=== PATIENT | female | born 1955 | race Caucasian/White ===

== ENCOUNTER 2020-03-28 15:11 | Emergency (ER) | payer BC, OTHER ==
--- OUTSIDE RECORDS SUMMARY | 2020-03-28 15:13 | XMS REPORT | Continuity of Care Document ---
:1955 Author Organization [facility] t Address [address] [place] [address] Care Team Providers Name Role Phone Unavailable Unavailable Unavailable Problems Condition Condition Condition Status Onset Resolution Last Treating Co mments Source Name Details Category Date Date Treatment Clinician Date Thyroid Thyroid Problem Active [facility] Adult Adult Diagnosis Active [facility] general general [facility] exam exam l [facility] Pain of Pain of Problem Active [facility] left calf left calf [facility] Screening Screening Problem Active [facility] for for [facility] - thyroid thyroid [facility] disorder disorder l [facility] Gynecologi Gynecologi Problem Active [facility] exam c exam [facility] normal normal [facility] Obesity Obesity Problem Active [facility] Vitamin D Vitamin D Problem Active [facility] deficiency deficiency Miriam kes - [facility] Hyperlipid Hyperlipid Problem Active [facility] emia emia [facility] Hearing Hearing Problem Active [facility] loss loss [facility] Lower Lower Problem Active [facility] extremity extremity Luke [facility] - pain, left pain, left Me moria l [facility] Osteopenia Osteopenia Problem Active [facility] Murmur Murmur Problem Active [facility] Chronic Chronic Problem Active [facility] fatigue fatigue [facility] Gastroesop Gastroesop Problem Active [facility] hageal hageal [facility] - reflux reflux Memoria disease disease l with with [facility]ics Grieving Grieving Problem [facility] Pharyngiti Pharyngiti Problem Active [facility] s, s, [facility] - unspecifie unspecifie Me moria d etiology d etiology l [facility] 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 Memoria disease, disease, l unspecifie unspecifie Ou tpati d whether d whether ent persistent persistent Cl inics Cough Cough Problem Active [facility] Abnormal Abnormal Problem Active [facility] mammogram mammogram [facility] Insulin Insulin Problem Active [facility] resistance resistance Miriam kes - [facility] PCOS PCOS Problem Active [facility] (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) l [facility] Pre-op Pre-op Problem Active [facility] exam exam [facility] Weight Weight Problem Active [facility] loss loss [facility] - counseling counseling Me moria , , l encounter encounter Outp ati for for ent Clinics Somnolence Somnolence Problem Active [facility] , daytime , daytime [facility] Elevated Elevated Problem Active [facility] blood blood [facility] - pressure pressure Memori a reading reading l with with Outpati diagnosis diagnosis ent of of Clinics hypertensi hypertensi on on Adverse Adverse Problem Active [facility] effect of effect of Luke s - angiotensi angiotensi Me moria n-converti n-converti l ng-enzyme ng-enzyme Outp ati inhibitors inhibitors en t , initial , initial Clin ics encounter encounter Prediabete Prediabete Diagnosis Active [facility] s s [facility] Duodenitis Duodenitis Diagnosis Active [facility] without without [facility] - bleeding bleeding Memori a l [facility] Helicobact Helicobact Diagnosis Active [facility] er pylori er pylori Luke s - [H. [H. Memoria pylori] as pylori] as l the cause the cause Outp ati of of ent diseases diseases Clinic s classified classified elsewhere elsewhere Allergies, Adverse Reactions, Alerts This patient has no known allergies or adverse reactions. Medications Ordered Filled Start Stop Current Ordering Indication Dosage Frequency Signature Comments Components Source Medication Medication Date Date Medication? Clinician (SIG) Name Name Ergocalcife Ergocalcife 2019-0 2020- No Na Weeks [address] [facility] rol rol 11-26 [facility] - 00:00: 00:00 Memoria 00 :00 Outpati ent Clinics Lisinopril Lisinopril 2018-05 Yes Na Weeks [address] [facility] 06-21 [facility] - 00:[facility]: [facility] 00 [facility] Ergocalcife Ergocalcife Yes Na Weeks [address] [facility] rol rol [facility] Metformin Metformin Yes Na Weeks [address] [facility] HCl HCl with a [facility] - meal [facility] Losartan Losartan Yes Na Weeks [address] [facility] Potassium Potassium [facility] Procedures This patient has no known procedures. Encounters Start End Encounter Admission Attending Care Care Encounter Source Date/Time Date/Time Type Type Clinicians Facility Department ID 2019-11-27 2019-11-27 [facility] [id number] [facility] [address] 08[facility]00[facility]00 08:00:[address] [facility] Medicine Outpati ent Clinics 2019-11-21 2019-11-21 [facility] [id number] [facility] [address] 09:20:00 09:20:[address] [facility] Medicine Outpati ent Clinics 2019-11-20 2019-11-20 [facility] [id number] [address] 16:04:00 16:04:[address] [facility] Medicine Outpati ent Clinics 2019-10-27 2019-10-27 [facility] [id number] [address] 13:33:00 13:33:[address] [facility] Medicine Outpati ent Clinics 2019-10-16 2019-10-16 [facility] [id number] [address] 09:27:00 09:27:[address] [facility] Medicine Outpati ent Clinics 2019-09-10 2019-09-10 [facility] [id number] [address] 08:40:00 08:40:[address] [facility] Medicine Outpati ent Clinics 2019-09-08 2019-09-08 [facility] [id number] [address] 16:32:00 16:32:00 t Dale Dale [employer] s - [facility] l Medicine Outpati ent Clinics 2019-05-29 2019-05-29 [facility] [id number] 09:00:00 09:00:00 t Dale [employer] s - [facility] Medicine l Medicine Outpati ent Clinics 2019-05-14 2019-05-14 [facility] [id number] [facility] 16:49:00 16:49:00 t Dale Dale [employer] s - [facility] Medicine l Medicine Outpati ent Clinics 2019-04-21 2019-04-21 [facility] [id number] [facility] 15:00:00 15:00:00 t Dale Dale [employer] s - [address] [facility] Medicine l Medicine Outpati ent Clinics 2019-03-11 2019-03-11 [facility] [id number] [address] 08:20:00 08:20:00 t Dale [employer] s - [address] [facility] Medicine l Medicine Outpati ent Clinics 2018-12-11 2018-12-11 [facility] [id number] 11:05:00 11:05:00 t Dale Dale [employer] [facility] - [address] [facility] Medicine l Medicine Outpati ent Clinics 2018-12-04 2018-12-04 [facility] [id number] 09:20:00 09:20:00 t Dale [employer] s - Drive [facility] Medicine l Medicine Outpati ent Clinics 2018-10-31 2018-10-31 [facility] [id number] 19:57:00 19:57:00 t Dale Dale [employer] s - [facility] Medicine l Medicine Outpati ent Clinics 2018-07-31 2018-07-31 [facility] [id number] [facility] 17:15:00 17:15:00 t [facility] Clinic l Outpati ent Clinics 2018-05-23 2018-05-23 [facility] [id number] 09:15:00 09:15:00 t Dale Dale [employer] s - [address] [facility] Medicine l Medicine Outpati ent Clinics 2017-09-27 2017-09-27 [facility] [id number] [facility] [address] 15:45:00 15:45:00 [employer] [facility] 2017-09-25 2017-09-25 Outpatient Timi Ritter [id number] [facility] [address] 11:30:00 11:30:00 [employer] [facility] Clinics Results This patient has no known results.
[2020-03-28] MEDS ORDERED: FENTANYL CITR 100 MCG/2 ML ONE ×2 (15:39→16:45)
[2020-03-28] MEDS ORDERED: propofoL 200 MG/20 ML VIAL IV ONE (16:55)
[2020-03-28] MEDS ORDERED: NA CHLORIDE 0.9% 1,000 ML ONE (17:00)
--- NOTE | 2020-03-28 17:07 | RAD REPORT ---
EXAM DESCRIPTION: RAD - Wrist Right 3 View - 03/28/2020 3:52 pm CLINICAL HISTORY: fall;Pain COMPARISON: No comparisons FINDINGS: Transverse fracture is present through the distal right radial metaphysis. Fracture is com minuted with an additional fracture fragment along the ulna margin. Approximately 40 degree dorsal an gulation deformity is present with impaction along the dorsal margin. No distal ulna fracture seen. Styloid appears intact. No carpal bone acute finding. Carpal bones main tain normal positioning to the angulated distal fracture fragment. There is no dislocation or periost eal reaction noted. Epiphyses and growth plates are normal in appearance. No foreign body or other so ft tissue abnormality. IMPRESSION: Comminuted distal right radius fracture with impaction and dorsal angulation.
--- NOTE | 2020-03-28 17:08 | RAD REPORT ---
EXAM DESCRIPTION: RAD - Wrist Left 3 View - 03/28/2020 3:53 pm CLINICAL HISTORY: PAIN COMPARISON: No comparisons FINDINGS: No fracture is identified. There is no dislocation or periosteal reaction noted. No foreig n body or other soft tissue abnormality. IMPRESSION: Negative left wrist examination.
--- NOTE | 2020-03-28 17:09 | RAD REPORT ---
EXAM DESCRIPTION: RAD - Sacrum And Coccyx - 03/28/2020 4:24 pm CLINICAL HISTORY: fall;Pain COMPARISON: No comparisons FINDINGS: No SI joint or sacral ala abnormality identifiable. No sacral or coccyx fracture confirmed there is no abnormal displacement or angulation of the segments. No prevertebral soft tissue thicken ing. No suspicious soft tissue process. IMPRESSION: No fracture of the sacrum or coccyx identifiable.
--- NOTE | 2020-03-28 18:01 | EDPHYS ---
Physician Documentation [facility] Name: Celsa Galvan Age: 64 yrs Sex: Female : 1955 Arrival Date: 03/28/2020 Time: 15:13 Bed 4 Private MD: ED Physician Otis Ballard HPI: 03/28 15:20 This 64 yrs old Female presents to ER via EMS with complaints of Fall. cp 15:20 Details of fall: The patient fell from an upright position, while walking. Onset: The cp symptoms/episode began/occurred just prior to arrival. Associated injuries: The patient sustained right wrist, decreased range of motion, deformity, painful injury, buttocks, painful injury, left wrist, painful injury. 15:20 Patient denies striking head, denies LOC. cp Historical: - Allergies: 15:20 Cipro PO; jd3 15:20 "some sort of blood pressure medication"; jd3 - Home Meds: 15:20 GERD med [Active]; blood pressure med [Active]; jd3 - PMHx: 15:20 Hypertension; GERD; jd3 - Immunization history:: Adult Immunizations up to date. - Social history:: Smoking status: Patient denies any tobacco usage or history of. ROS: 15:30 Constitutional: Negative for body aches, chills, fever. cp 15:30 Eyes: Negative for injury, pain, redness, and discharge. cp 15:30 Neck: Negative for pain with movement, pain at rest, stiffness. 15:30 Cardiovascular: Negative for chest pain, palpitations. 15:30 Respiratory: Negative for cough, shortness of breath, wheezing. 15:30 Abdomen/GI: Negative for abdominal pain, nausea, vomiting, and diarrhea. 15:30 Back: Positive for pain at rest, of the sacrum. 15:30 MS/extremity: Positive for injury or acute deformity, decreased range of motion, pain, of the right wrist, Negative for paresthesias. 15:30 Neuro: Negative for altered mental status, headache, loss of consciousness, syncope, weakness. 15:30 All other systems are negative. Exam: 15:35 Constitutional: The patient appears in no acute distress, alert, awake, cp non-diaphoretic, non-toxic, well developed, well nourished, uncomfortable. 15:35 Head/Face: Normocephalic, atraumatic. cp 15:35 Eyes: Periorbital structures: appear normal, Pupils: equal, round, and reactive to light and accomodation, Extraocular movements: intact throughout, Conjunctiva: normal, no exudate, no injection, Sclera: no appreciated abnormality, Lids and lashes: appear normal, bilaterally. 15:35 ENT: External ear(s): are unremarkable, Nose: is normal, Mouth: is normal, Posterior pharynx: Airway: no evidence of obstruction, patent. 15:35 Neck: C-spine: vertebral tenderness, is not appreciated, crepitus, is not appreciated, ROM/movement: pain, is not appreciated, limited range of motion, is not appreciated. 15:35 Chest/axilla: Inspection: normal, Palpation: is normal, no crepitus, no tenderness. 15:35 Cardiovascular: Rate: normal, Rhythm: regular, Pulses: Pulses are 2+ in right radial artery and left radial artery. Edema: is not appreciated, JVD: is not appreciated. 15:35 Respiratory: the patient does not display signs of respiratory distress, Respirations: normal, no use of accessory muscles, no retractions, labored breathing, is not present, Breath sounds: are clear throughout, no decreased breath sounds, no stridor, no wheezing. 15:35 Abdomen/GI: Inspection: abdomen appears normal, Palpation: abdomen is soft and non-tender, in all quadrants. 15:35 Back: pain, that is mild, of the sacrum. 15:35 Musculoskeletal/extremity: Extremities: grossly normal except: noted in the right wrist: decreased ROM, deformity, pain, tenderness, ROM: limited passive range of motion, in the right wrist, the right wrist Severe pain noted. 15:35 Skin: intact with no open wounds. 15:35 Neuro: Orientation: to person, place \\T\\ time. Mentation: is normal, Motor: moves all fours, strength is normal, Sensation: no obvious gross deficits. Vital Signs: 15:18 BP 119 / 56; Pulse 85; Resp 17 S; Temp 97.3(TE); Pulse Ox 99% on R/A; Weight 95.25 kg jd3 (R); Height 5 ft. 7 in. (170.18 cm) (R); Pain 10/10; 16:22 BP 119 / 61; Pulse 70; Resp 18; Temp 97.6(TE); Pulse Ox 99% on R/A; mh5 17:25 BP 134 / 81; Pulse 74; Resp 16 S; Pulse Ox 100% on R/A; jd3 18:29 BP 133 / 67; Pulse 84; Resp 17 S; Pulse Ox 100% on R/A; jd3 15:18 Body Mass Index 32.89 (95.25 kg, 170.18 cm) jd3 Procedures: 17:49 Reduction: of the right wrist, using traction, manipulation, Immobilized with Orthoglass sugar tong type splint. Patient tolerated well. Post reduction film - reveals improved alignment. Moderate sedation: Pre-procedure assessment: Airway assessment: able to hyperextend neck, able to maintain airway, can open mouth without difficulty, Monitoring during procedure: environmental monitoring specialist, continuous pulse oximetry, nurse at bedside at all times, Medications employed: 100 mg Propofol, Post-procedure assessment: the patient is moderately sedated, Respiratory status: even and unlabored. MDM: 15:15 Patient medically screened. cp 16:00 Differential diagnosis: closed head injury, fracture, laceration, multiple trauma. cp 18:00 Data reviewed: vital signs, nurses notes, radiologic studies, plain films, I have cp discussed the patient's presentation/case with the attending Emergency Department Physician; and as a result, I will discharge patient. 18:00 Test interpretation: by ED physician or midlevel provider: xrays of right wrist show cp Colles fracture. Counseling: I had a detailed discussion with the patient and/or guardian regarding: the historical points, exam findings, and any diagnostic results supporting the discharge/admit diagnosis, lab results. Response to treatment: the patient's symptoms have markedly improved after treatment, and as a result, I will discharge patient. ED course: VSS. Pain markedly improved. Reduction of right wrist shows improved alignment. Will discharge to home for continued monitoring. 03/28 15:15 Order name: XRAY Sacrum And Coccyx 03/28 15:15 Order name: XRAY Wrist RIGHT 3 view cp 03/28 15:15 Order name: XRAY Wrist LEFT 3 view cp 03/28 17:09 Order name: XRAY Wrist RIGHT 2 view cp 03/28 15:15 Order name: IV; Complete Time: 15:30 cp 03/28 16:35 Order name: Splint - Sugar Tong - Forearm; Complete Time: 16:52 cp 03/28 17:14 Order name: Sling; Complete Time: 17:14 5 Administered Medications: 15:30 Drug: fentaNYL (PF) 25 mcg Route: IVP; Site: left antecubital; jd3 16:30 Follow up: Response: No adverse reaction; RASS: Alert and Calm (0) jd3 16:34 Drug: fentaNYL (PF) 25 mcg Route: IVP; Site: left antecubital; jd3 17:00 Follow up: Response: No adverse reaction; RASS: Alert and Calm (0) jd3 17:00 Drug: NS 0.9% 1000 ml Route: IV; Rate: 1 bolus; Site: left antecubital; jd3 18:00 Follow up: Response: No adverse reaction; IV Status: Completed infusion; IV Intake: jd3 1000ml 17:22 Drug: Propofol 100 mg Route: IVP; Site: left antecubital; jd3 18:00 Follow up: Response: No adverse reaction jd3 Disposition: 03/29 06:40 Co-signature as Attending Physician, Otis Ballard MD I agree with the assessment and kdr plan of care. Disposition: 03/28/20 18:01 Discharged to Home. Impression: Colles' fracture of right radius, Pain in left wrist, Fall on same level from slipping, tripping and stumbling. - Condition is Stable. - Discharge Instructions: Colles Fracture. - Prescriptions for Tylenol- Codeine #3 300-30 mg Oral Tablet - take 2 tablet by ORAL route every 6 hours As needed; 30 tablet. - Medication Reconciliation Form, Thank You Letter, Antibiotic Education, Prescription Opioid Use form. - Follow up: Faisal Velez MD; When: 2 - 3 days; Reason: right distal radius fracture. - Problem is new. - Symptoms have improved. Signatures: Dispatcher [employer] EDMS Otis Ballard MD MD [facility] Lonnie Richards PA PA cp Martinez, Maria [facility] Charles Weber RN RN jd3 Corrections: (The following items were deleted from the chart) 03/28 18:31 18:01 03/28/2020 18:01 Discharged to Home. Impression: Colles' fracture of right jd3 radius; Pain in left wrist; Fall on same level from slipping, tripping and stumbling. Condition is Stable. Forms are Medication Reconciliation Form, Thank You Letter, Antibiotic Education, Prescription Opioid Use. Follow up: Faisal Velez; When: 2 - 3 days; Reason: right distal radius fracture. Problem is new. Symptoms have improved. cp
--- NOTE | 2020-03-28 18:01 | ER ---
Nurse's Notes [facility] Name: Celsa Galvan Age: 64 yrs Sex: Female : 1955 Arrival Date: 03/28/2020 Time: 15:13 Bed 4 Private MD: Diagnosis: Colles' fracture of right radius;Pain in left wrist;Fall on same level from slipping, tripping and stumbling Presentation: 03/28 15:17 Chief complaint: EMS states: "she is reporting a fall today and catching herself on the jd3 way down with her right wrist and forearm.". Coronavirus screen: At this time, the client does not indicate any symptoms associated with coronavirus-19. Ebola Screen: Patient negative for fever greater than or equal to 101.5 degrees Fahrenheit, and additional compatible Ebola Virus Disease symptoms. Initial Sepsis Screen: Does the patient meet any 2 criteria? No. Patient's initial sepsis screen is negative. Does the patient have a suspected source of infection? No. Patient's initial sepsis screen is negative. Risk Assessment: Do you want to hurt yourself or someone else? Patient reports no desire to harm self or others. Onset of symptoms was March 28, 2020. 15:17 Method Of Arrival: EMS: [facility] jd3 15:17 Acuity: SKY 3 jd3 Historical: - Allergies: 15:20 Cipro PO; jd3 15:20 "some sort of blood pressure medication"; jd3 - Home Meds: 15:20 GERD med [Active]; blood pressure med [Active]; jd3 - PMHx: 15:20 Hypertension; GERD; jd3 - Immunization history:: Adult Immunizations up to date. - Social history:: Smoking status: Patient denies any tobacco usage or history of. Screenin:21 Abuse screen: Denies threats or abuse. Nutritional screening: No deficits noted. jd3 Tuberculosis screening: No symptoms or risk factors identified. Fall Risk Ambulatory Aid- None/Bed Rest/Nurse Assist (0 pts). Gait- Normal/Bed Rest/Wheelchair (0 pts) Mental Status- Oriented to own ability (0 pts). Total Everett Fall Scale indicates No Risk (0-24 pts). Assessment: 15:20 General: Appears in no apparent distress. uncomfortable, Behavior is calm, cooperative, jd3 appropriate for age. Pain: Complains of pain in coccyx, right forearm and right wrist Quality of pain is described as sharp, shooting. Neuro: Level of Consciousness is awake, alert, obeys commands, Oriented to person, place, time, situation. Cardiovascular: Denies chest pain, Capillary refill < 3 seconds Patient's skin is warm and dry. Respiratory: Airway is patent Respiratory effort is even, unlabored, Respiratory pattern is regular, symmetrical, Denies cough, shortness of breath. GI: No signs and/or symptoms were reported involving the gastrointestinal system. : No signs and/or symptoms were reported regarding the genitourinary system. EENT: No signs and/or symptoms were reported regarding the EENT system. Derm: Skin is intact, Skin is dry, Skin is normal, Skin temperature is warm. Musculoskeletal: Circulation, motion, and sensation intact. Range of motion: limited in right wrist. 16:48 Reassessment: Patient appears in no apparent distress at this time. No changes from jd3 previously documented assessment. Patient and/or family updated on plan of care and expected duration. Pain level reassessed. Patient is alert, oriented x 3, equal unlabored respirations, skin warm/dry/pink. conscious sedation consent signed. 17:00 Reassessment: conscious sedation and reduction done. jd3 17:23 Reassessment: Patient appears in no apparent distress at this time. Patient and/or jd3 family updated on plan of care and expected duration. Pain level reassessed. Patient is alert, oriented x 3, equal unlabored respirations, skin warm/dry/pink. procedure done and pt fully awake. see conscious sedation charting. Patient states feeling better. 18:29 Reassessment: Patient appears in no apparent distress at this time. Patient and/or jd3 family updated on plan of care and expected duration. Pain level reassessed. Patient is alert, oriented x 3, equal unlabored respirations, skin warm/dry/pink. Patient states feeling better. Patient states symptoms have improved. Vital Signs: 15:18 BP 119 / 56; Pulse 85; Resp 17 S; Temp 97.3(TE); Pulse Ox 99% on R/A; Weight 95.25 kg jd3 (R); Height 5 ft. 7 in. (170.18 cm) (R); Pain 10/10; 16:22 BP 119 / 61; Pulse 70; Resp 18; Temp 97.6(TE); Pulse Ox 99% on R/A; mh5 17:25 BP 134 / 81; Pulse 74; Resp 16 S; Pulse Ox 100% on R/A; jd3 18:29 BP 133 / 67; Pulse 84; Resp 17 S; Pulse Ox 100% on R/A; jd3 15:18 Body Mass Index 32.89 (95.25 kg, 170.18 cm) jd3 ED Course: 15:13 Patient arrived in ED. em1 15:13 Lonnie Richards PA is PHCP. cp 15:13 Otis Ballard MD is Attending Physician. cp 15:17 Charles Weber, DONA is Primary Nurse. jd3 15:18 Triage completed. jd3 15:19 Arm band placed on. jd3 15:21 Patient has correct armband on for positive identification. Bed in low position. Call jd3 light in reach. Side rails up X2. Pulse ox on. NIBP on. 15:30 Inserted saline lock: 22 gauge in left antecubital area, using aseptic technique. jd3 placed by [employer]. 15:52 XRAY Wrist RIGHT 3 view In Process Unspecified. EDMS 15:52 XRAY Wrist LEFT 3 view In Process Unspecified. EDMS 16:25 XRAY Sacrum And Coccyx In Process Unspecified. EDMS 16:49 Orthoglass splint: Sugar tong splint applied on right arm. Sling applied to right arm. mh5 17:47 XRAY Wrist RIGHT 2 view In Process Unspecified. EDMS 17:58 Faisal Velez MD is Referral Physician. cp 18:28 No provider procedures requiring assistance completed. IV discontinued, intact, jd3 bleeding controlled, No redness/swelling at site. Pressure dressing applied. Administered Medications: 15:30 Drug: fentaNYL (PF) 25 mcg Route: IVP; Site: left antecubital; jd3 16:30 Follow up: Response: No adverse reaction; RASS: Alert and Calm (0) jd3 16:34 Drug: fentaNYL (PF) 25 mcg Route: IVP; Site: left antecubital; jd3 17:00 Follow up: Response: No adverse reaction; RASS: Alert and Calm (0) jd3 17:00 Drug: NS 0.9% 1000 ml Route: IV; Rate: 1 bolus; Site: left antecubital; jd3 18:00 Follow up: Response: No adverse reaction; IV Status: Completed infusion; IV Intake: jd3 1000ml 17:22 Drug: Propofol 100 mg Route: IVP; Site: left antecubital; jd3 18:00 Follow up: Response: No adverse reaction jd3 Intake: 18:00 IV: 1000ml; Total: 1000ml. jd3 Outcome: 18:01 Discharge ordered by . cp 18:29 Discharged to home via wheelchair, with friend. jd3 18:29 Condition: stable 18:29 Discharge instructions given to patient, Instructed on discharge instructions, follow up and referral plans. medication usage, Demonstrated understanding of instructions, follow-up care, medications, Prescriptions given X 1. 18:31 Patient left the ED. jd3 Signatures: Dispatcher [employer] rGeg Delgadillo em1 Lonnie Richards PA PA cp Martinez, [facility] Charles Weber RN RN jd3
--- NOTE | 2020-03-28 18:32 | RAD REPORT ---
EXAM DESCRIPTION: RAD - Wrist Right 2 View - 03/28/2020 5:47 pm FINDINGS: Frontal and lateral projections were obtained labeled post reduction. Cast material is in place. Distal right radius fracture has been returned anatomic alignment and position.
[2020-03-28 18:39] VITALS: TEMP 97.6
[2020-03-28 18:40] VITALS: O2SAT 100
[2020-03-28 18:42] VITALS: BP 133/67
== END 2020-03-28 18:31 | disposition home or self-care (01) ==
LOC: ER 15:11
PROC: 0PSHXZZ Reposition Right Radius, External Approach (ICD-10-PCS; principal; 2020-03-28)
DX: S52.531A Colles' fracture of right radius, initial encounter for closed fracture (principal); W01.0XXA Fall on same level from slipping, tripping and stumbling without subsequent striking against object, initial encounter; Y93.01 Activity, walking, marching and hiking; Y92.9 Unspecified place or not applicable; Z88.1 Allergy status to other antibiotic agents; Z88.8 Allergy status to other drugs, medicaments and biological substances; I10 Essential (primary) hypertension; K21.9 Gastro-esophageal reflux disease without esophagitis
CPT/HCPCS: 96361; 72220; 73110 ×2; 73100; 96375; 96374; 99285; 25605; J2704; J3010 ×2; J7030

== ENCOUNTER 2021-06-21 13:46 | Emergency (ER) | payer BC ==
--- OUTSIDE RECORDS SUMMARY | 2021-06-21 13:48 | XMS REPORT | Continuity of Care Document ---
:1955 Author Organization [facility] t Address [address] [place] [address] Care Team Providers Name Role Phone Rosa Weeks Primary Care Physician Mary MORALEZ Attending Clinician Payers Payer Name Policy Type Policy Number Effective Date Expiration Date S ource Problems Condition Condition Condition Status Onset Resolution Last Treating Co mments Source Name Details Category Date Date Treatment Clinician Date Obesity Obesity Disease Active Univers (BMI (BMI 7-18 ity of 30-39.9) 30-39.9) 00:00: [place] 00 Medical Branch Allergies, Adverse Reactions, Alerts Allergy Allergy Status Severity Reaction(s) Onset Inactive Treating Comm ents Source Name Type Date Date Clinician Jesus Propensi Active Cough Univers Inhibito ty to 2-04 ity of rs adverse 00:00: [place] reaction 00 Medical s Branch Ciproflo Propensi Active Hives 2019-05 Univer s xacin ty to 1-05 ity of adverse 00:00: [place] reaction 00 Medical s to Branch drug Sulfa Propensi Active Nausea 2019-05 Univers (Sulfona ty to and/or 1-05 ity of mide adverse Vomiting 00:00: [place] Antibiot reaction 00 Medica l ics) s to Branch drug Social History Social Habit Start Date Stop Date Quantity Comments Source History SDOH [facility] [place] Alcohol Comment Medical B ranch Exposure to Not sure [facility] SARS-CoV-2 (event) Medica l Branch Alcohol intake 2021-05-30 2021-05-30 .14 /d [facility] 00:00:00 00:00:00 Medical Branch Tobacco use and 2018-12-09 2018-12-09 Never used [facility] exposure 00:00:00 00:00:00 Medical Branch History [facility] 2018-12-09 2018-12-09 2 [facility] [place] Alcohol Frequency 00:00:00 00:00:00 Medical Branch History [facility] 2018-12-09 2018-12-09 1 University o [facility] Alcohol Std Drinks 00:00:00 00:00:00 Medica l Branch History [facility] 2018-12-09 2018-12-09 2 [place] [facility] Alcohol Binge 00:00:00 00:00:[address] [facility] Sex Assigned At [birth year] [facility] 00:00:00 00:00:00 Medical Branch Smoking Status Start Date Stop Date Source Never smoker [facility] Medications Ordered Filled Start Stop Current Ordering Indication Dosage Frequency Signature Comments Components Source Medication Medication Date Date Medication? Clinician (SIG) Name Name diclofenac 2019-05 Yes 75mg Take 1 Unive rs 75 mg EC 1-13 tablet by ity of tablet 00:00: mouth 2 [place] 00 (two) Medical times Branch daily with meals. pentazocine 2019-05 Yes 2745 1{tbl} Take 1 Un kate -naloxone 1-13 tablet by ity o f 50-0.5 mg 00:00: mouth [place] tablet 00 every 4 Medical (four) Branch hours as needed for Pain. Indication s: chronic pain acetaminoph 2019-05 Yes 2{tbl} Take 2 Un kate en/diphenhy 1-05 tablets by it y of dramine 08:46: mouth as [place] (TYLENOL PM 19 needed. Medic al ORAL) Branch ergocalcife 2019-05 Yes Vitamin D2 Univers rol, 1-05 1,250 mcg ity of vitamin d2, 08:46: (50,000 Tay as 1,250 mcg 19 unit) Medical (50,000 capsule Branch unit) capsule omeprazole 2019-05 Yes Univers 20 mg 1-02 ity of capsule 00:00: [place] 00 Medical Branch losartan 25 2019- Yes 25mg Take 25 mg Univers mg tablet 0-12 by mouth ity of 00:00: daily. [place] 00 Medical Branch Ergocalcife Ergocalcife 2020-0 2020- No Na Weeks [address] [facility] Lisinopril Lisinopril 2019-1 Yes Na Weeks [address] [facility] 1-25 [facility] Ergocalcife Ergocalcife Yes Na Weeks [address] [facility] Metformin Metformin Yes Na Weeks [address] [facility] HCl HCl with a [facility] - meal [facility] Losartan Losartan Yes Na Weeks [address] [facility] Potassium Potassium [facility] Vital Signs Vital Name Observation Time Observation Value Comments Source Body temperature 2021-05-30 16:26:00 35.61 [facility] Body height 2021-05-30 16:26:[address] [facility] Body weight 2021-05-30 16:26:[address] [facility] BMI 2021-05-30 16:26:00 33.20 kg/m2 [facility] Procedures This patient has no known procedures. Encounters Start End Encounter Admission Attending Care Care Encounter Source Date/Time Date/Time Type Type Clinicians Facility Department ID 2021-05-30 2021-05-30 Office [facility], [facility] [id number] [facility] 10:20:00 11:03:59 Visit Esvin MARIE [id number] it y of CARE [id number] Radha MAGANA [id number] Mi dical [facility] Branch 2021-05-26 2021-05-26 ambulatory [facility] [id number] [facility] 2021-02-22 2021-02-22 [facility] [id number] [facility] 2020-10-26 2020-10-26 [facility] [id number] [facility] 2020-10-21 2020-10-21 Outpatient [facility] [id number] [facility] 2020-10-20 2020-10-20 Outpatient [facility] [id number] [facility] 2020-10-20 2020-10-20 Outpatient [facility] [id number] [facility] 2020-08-19 2020-08-19 Outpatient [facility] [id number] [facility] 2020-07-29 2020-07-29 Outpatient [facility] [id number] [facility] 2020-07-29 2020-07-29 Outpatient [facility] [id number] [facility] 2020-07-27 2020-07-27 Outpatient [facility] [id number] [facility] 2020-05-28 2020-05-28 Outpatient [facility] [id number] [facility] 2020-05-27 2020-05-27 Outpatient [facility] [id number] [facility] 2020-04-01 2020-04-01 Outpatient [facility] [id number] [facility] 2020-03-30 2020-03-30 Outpatient [facility] [id number] [facility] 2019-11-27 2019-11-27 [facility] [id number] [facility] 08:00:00 08:00:00 [place] [employer] [facility] l Medicine Outpati ent Clinics 2019-11-21 2019-11-21 [facility] [id number] [facility] 09:20:00 09:20:00 t [place] [employer] [facility] Medicine l Medicine Outpati ent Clinics 2019-11-20 2019-11-20 [facility] [id number] [facility] 16:04:00 16:04:00 t [place] [employer] [facility] Medicine l Medicine Outpati ent Clinics 2019-10-27 2019-10-27 [facility] [id number] 13:33:00 13:33:00 t [employer] [facility] Medicine l Medicine Outpati ent Clinics 2019-10-16 2019-10-16 [facility] [id number] [facility] 09[facility]27:00 09:27:00 t [employer] [facility] Medicine l Medicine Outpati ent Clinics 2019-09-10 2019-09-10 [facility] [id number] [facility] 08:40:00 08:40:00 t [employer] [facility] Medicine l Medicine Outpati ent Clinics 2019-09-08 2019-09-08 [facility] [id number] 16:32:00 16:32:00 t [employer] [facility] Medicine l Medicine Outpati ent Clinics 2019-05-29 2019-05-29 [facility] [id number] [facility] 09:00:00 09:00:00 t [place] [employer] [facility] Medicine l Medicine Outpati ent Clinics 2019-05-14 2019-05-14 [facility] [id number] 16:49:00 16:49:00 t [employer] [facility] Medicine l Medicine Outpati ent Clinics 2019-04-21 2019-04-21 [facility] [id number] [facility] 15:00:00 15:00:00 t [employer] [facility] Medicine Outpati ent Clinics 2019-03-11 2019-03-11 [facility] [id number] [facility] 08:20:00 08:20:00 [place] [employer] [facility] Medicine Outpati ent Clinics 2018-12-11 2018-12-11 [facility] [id number] 11:05:00 11:05:00 t [place] [employer] [facility] Medicine Outpati ent Clinics 2018-12-04 2018-12-04 [facility] [id number] 09:20:00 09:20:00 t [place] [employer] [facility] Medicine Outpati ent Clinics 2018-10-31 2018-10-31 [facility] [id number] 19:57:00 19:57:00 t [employer] [facility] Medicine Outpati ent Clinics 2018-07-31 2018-07-31 [facility] [id number] [facility] 17:15:00 17:15:00 t [facility] Outpati [facility] Clinics 2018-05-23 2018-05-23 [facility] [id number] 09:15:00 09:15:00 t [employer] [facility] Medicine Outpati ent Clinics 2017-09-27 2017-09-27 [facility] [id number] 15:45:00 15:45:00 t [place] [employer] [facility] Medicine Outpati ent Clinics 2017-09-25 2017-09-25 [facility] [id number] [facility] 11:30:00 11:30:00 t [employer] [facility] Medicine Outpati ent Clinics Results This patient has no known results.
--- NOTE | 2021-06-21 14:39 | ER ---
Nurse's Notes [facility] Name: Celsa Galvan Age: 65 yrs Sex: Female : 1955 Arrival Date: 06/21/2021 Time: 13:47 Bed 8 Private MD: Eliane Weeks Diagnosis: Pain in left lower leg Presentation: 06/21 13:55 Chief complaint: Patient states: for the past 4 days has been having 'lina horses' vg1 in left calf. 13:55 Coronavirus screen: Vaccine status: Patient reports receiving the 2nd dose of the covid vg1 vaccine. Client denies travel out of the [place] in the last 14 days. Ebola Screen: Patient negative for fever greater than or equal to 101.5 degrees Fahrenheit, and additional compatible Ebola Virus Disease symptoms. Initial Sepsis Screen: Does the patient meet any 2 criteria? No. Patient's initial sepsis screen is negative. Does the patient have a suspected source of infection? No. Patient's initial sepsis screen is negative. Risk Assessment: Do you want to hurt yourself or someone else? Patient reports no desire to harm self or others. Onset of symptoms was June 17, 2021. 13:55 Method Of Arrival: Ambulatory vg1 13:55 Acuity: SKY 3 vg1 Triage Assessment: 14:23 General: Appears in no apparent distress. comfortable, Behavior is calm, cooperative. vg1 Historical: - Allergies: 14:23 "some sort of blood pressure medication"; vg1 14:23 Cipro PO; vg1 - Home Meds: 14:23 losartan oral [Active]; Omeprazole Oral [Active]; vg1 - PMHx: 14:23 GERD; Hypertension; Pre Diabetes; vg1 - PSHx: 14:23 Tonsillectomy; vg1 - Immunization history:: Client reports receiving the 2nd dose of the Covid vaccine. - Social history:: Smoking status: Patient denies any tobacco usage or history of. Screenin:24 Abuse screen: Denies threats or abuse. Nutritional screening: No deficits noted. vg1 Tuberculosis screening: No symptoms or risk factors identified. Fall Risk None identified. Assessment: 13:55 General: Appears in no apparent distress. comfortable, Behavior is calm, cooperative. vg1 13:55 Reassessment: Pt left lower extremity does not appear to be swollen, red, or hot to vg1 touch. Pain: Complains of pain in left calf Pain currently is 2 out of 10 on a pain scale. at worst was 5 out of 10 on a pain scale. Pain began x 4 days. Neuro: Level of Consciousness is awake, alert, obeys commands, Oriented to person, place, time, situation. Cardiovascular: Patient's skin is warm and dry. Respiratory: Airway is patent Respiratory effort is even, unlabored. GI: No signs and/or symptoms were reported involving the gastrointestinal system. : No signs and/or symptoms were reported regarding the genitourinary system. EENT: No signs and/or symptoms were reported regarding the EENT system. Derm: Skin is pink, warm \\T\\ dry. Musculoskeletal: Circulation, motion, and sensation intact. Vital Signs: 13:55 BP 123 / 75; Pulse 92; Resp 16; Temp 97.6; Pulse Ox 100% ; Weight 92.99 kg; Height 5 vg1 ft. 7 in. (170.18 cm); Pain 2/10; 13:55 Body Mass Index 32.11 (92.99 kg, 170.18 cm) vg1 ED Course: 13:47 Patient arrived in ED. am2 13:47 Eliane Weeks MD is Private Physician. am2 13:50 Michael Lizama MD is Attending Physician. sp3 13:53 Antonieta Tyler RN is Primary Nurse. vg1 14:23 Triage completed. vg1 14:23 Arm band placed on. vg1 14:24 Patient has correct armband on for positive identification. Placed in gown. Bed in low vg1 position. Call light in reach. Side rails up X 1. 14:24 No provider procedures requiring assistance completed. vg1 14:36 US Extremity Venous W Compression Santos In Process Unspecified. EDMS Administered Medications: No medications were administered Outcome: 14:38 Discharge ordered by . sp3 14:55 Patient left the ED. jh6 Signatures: Dispatcher [employer] EDMS Kyra Emery am2 Antonieta Tyler, RN RN 1 Michael Lizama MD MD sp3 Flavia Gibbons RN RN jh6
--- NOTE | 2021-06-21 14:39 | EDPHYS ---
Physician Documentation [facility] Name: Celsa Galvan Age: 65 yrs Sex: Female : 1955 Arrival Date: 06/21/2021 Time: 13:47 Bed 8 Private MD: Eliane Weeks ED Physician Michael Lizama HPI: 06/21 14:35 This 65 yrs old Female presents to ER via Ambulatory with complaints of possible blood sp3 clot. 14:35 5-year-old female with a history of hypertension, prediabetes, GERD, who presents with sp3 chief complaint left lower extremity pain the posterior aspect of her left lower extremity. Patient's pain started yesterday and is described as being sharp in nature. Patient not had a prior history of DVT, PE, hypercoagulability, long travel, prolonged immobilization, chest pain, shortness of breath, or any other signs or symptoms of DVT/VTE. Patient states that out of an abundance of caution she came into the ED to get evaluated. She describes the pain as a "charley horse" that comes and goes over the last couple of days. She also denies any traumatic injury.. Historical: - Allergies: 14:23 "some sort of blood pressure medication"; vg1 14:23 Cipro PO; vg1 - Home Meds: 14:23 losartan oral [Active]; Omeprazole Oral [Active]; vg1 - PMHx: 14:23 GERD; Hypertension; Pre Diabetes; vg1 - PSHx: 14:23 Tonsillectomy; vg1 - Immunization history:: Client reports receiving the 2nd dose of the Covid vaccine. - Social history:: Smoking status: Patient denies any tobacco usage or history of. ROS: 14:37 Constitutional: Negative for fever, chills, and weight loss, Eyes: Negative for injury, sp3 pain, redness, and discharge, ENT: Negative for injury, pain, and discharge, Neck: Negative for injury, pain, and swelling, Cardiovascular: Negative for chest pain, palpitations, and edema, Respiratory: Negative for shortness of breath, cough, wheezing, and pleuritic chest pain, Abdomen/GI: Negative for abdominal pain, nausea, vomiting, diarrhea, and constipation, Back: Negative for injury and pain, Skin: Negative for injury, rash, and discoloration, Neuro: Negative for headache, weakness, numbness, tingling, and seizure. 14:37 All other systems are negative. Exam: 14:37 Constitutional: This is a well developed, well nourished patient who is awake, alert, sp3 and in no acute distress. Head/Face: Normocephalic, atraumatic. Chest/axilla: Normal chest wall appearance and motion. Nontender with no deformity. No lesions are appreciated. Cardiovascular: Regular rate and rhythm with a normal S1 and S2. No gallops, murmurs, or rubs. Normal PMI, no JVD. No pulse deficits. Respiratory: Lungs have equal breath sounds bilaterally, clear to auscultation and percussion. No rales, rhonchi or wheezes noted. No increased work of breathing, no retractions or nasal flaring. Abdomen/GI: Soft, non-tender, with normal bowel sounds. No distension or tympany. No guarding or rebound. No evidence of tenderness throughout. Back: No spinal tenderness. No costovertebral tenderness. Full range of motion. Skin: Warm, dry with normal turgor. Normal color with no rashes, no lesions, and no evidence of cellulitis. MS/ Extremity: Pulses equal, no cyanosis. Neurovascular intact. Full, normal range of motion. Neuro: Awake and alert, GCS 15, oriented to person, place, time, and situation. Cranial nerves II-XII grossly intact. Motor strength 5/5 in all extremities. Sensory grossly intact. Cerebellar exam normal. Normal gait. Vital Signs: 13:55 BP 123 / 75; Pulse 92; Resp 16; Temp 97.6; Pulse Ox 100% ; Weight 92.99 kg; Height 5 vg1 ft. 7 in. (170.18 cm); Pain 2/10; 13:55 Body Mass Index 32.11 (92.99 kg, 170.18 cm) vg1 MDM: 14:05 Patient medically screened. sp3 14:37 Data reviewed: vital signs, nurses notes. ED course: 65-year-old female with left lower sp3 extremity pain. Bilateral DVT ultrasounds of the lower extremities are both negative. Patient likely has a musculoskeletal tear or strain in that area. No evidence of clot is seen and clinically patient has no risk factors for such pathology. Will reassure patient and discharge her home with PCP follow-up. Patient declined any pain medications and states that she does not want to take any at home either will "ride it out".. 06/21 14:06 Order name: US Extremity Venous W Compression Santos sp3 Administered Medications: No medications were administered Disposition Summary: 06/21/21 14:38 Discharge Ordered Location: Home sp3 Condition: Stable sp3 Diagnosis - Pain in left lower leg sp3 Followup: sp3 - With: Private Physician - When: Upon discharge from the Emergency Department - Reason: Re-evaluation by your physician Discharge Instructions: - Discharge Summary Sheet sp3 - Pain Without a Known Cause sp3 Forms: - Medication Reconciliation Form sp3 - Thank You Letter sp3 - Antibiotic Education sp3 - Prescription Opioid Use sp3 Signatures: Dispatcher [employer] Antonieta Maldonado RN RN vg1 Michael Lizama MD MD sp3
--- NOTE | 2021-06-21 14:43 | RAD REPORT ---
EXAM DESCRIPTION: US - Extrem Venous W Compress Santos - 06/21/2021 2:37 pm CLINICAL HISTORY: PAIN Bilateral leg edema and swelling. COMPARISON: Extremity Venous [facility] dated 09/25/2017 TECHNIQUE: Real-time sonographic interrogation of the left and right lower extremity deep venous sys tems was performed. FINDINGS: Normal compressibility, flow augmentation, phasic flow and spontaneous flow is identified in both the left and right lower extremity deep venous systems. IMPRESSION: No sonographic evidence of left or right lower extremity deep venous thrombosis.
[2021-06-21 15:00] VITALS: BP 123/75; TEMP 97.6; O2SAT 100
== END 2021-06-21 14:55 | disposition home or self-care (01) ==
LOC: ER 13:46
DX: M79.662 Pain in left lower leg (principal); I10 Essential (primary) hypertension; Z88.1 Allergy status to other antibiotic agents
CPT/HCPCS: 93970; 99282